=== PATIENT | female | born 2000 | race African-American/Black ===

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

== ENCOUNTER 2022-07-01 11:00 | Outpatient (RCR) | payer MEDICAID ==
[~2022-07-01 11:00] MED LIST changes: +NATURAL IRON65 MG
== END 2022-07-02 | disposition home or self-care (01) ==
LOC: MKS.ESL.PT
DX: M25.561 Pain in right knee (principal)